=== PATIENT | female | born 1970 | race Caucasian/White ===

== ENCOUNTER 2018-04-19 19:07 | Emergency (ER) | payer MEDICARE, MEDICAID ==
--- NOTE | 2018-04-19 19:40 | ER Document Report ---
ED Allergic Reaction - General Mode of Arrival: Ambulatory Information source: Patient TRAVEL OUTSIDE OF THE [place] IN LAST 30 DAYS: No <ARIANE KIM - Last Filed: 04/19/18 22:37> <VADIM YUN - Last Filed: 04/20/18 03:28> - General Chief Complaint: Allergic Reaction Stated Complaint: POSSIBLE ALLERGIC REACTION Time Seen by Provider: 04/19/18 19:12 Notes: Patient is a 47-year-old female who presents to the emergency department today complaining of an allergic reaction. Patient reports initially feeling a burning and itching sensation in her hands which soon progressed to lip swelling , shortness of breath, and noticeable voice changes according to family at bedside. Patient states she did not come into contact with animals or any other substances that she has not encountered in the past so she cannot determine what caused the reaction. Patient states she has no known allergies except ketorolac. Patient is on immunosuppression therapy for RA patient was given 1 mg, 50 mg of Benadryl, 2.5 of albuterol, Solu-Medrol, and Pepcid prior to arrival by EMS. (ARIANE KIM) - Related Data Allergies/Adverse Reactions: ketorolac [From Toradol] Allergy (Verified 04/19/18 19:21) Past Medical History - General Information source: Patient - Social History Smoking Status: Former Smoker Frequency of alcohol use: None Drug Abuse: None Lives with: Family Family History: Reviewed & Not Pertinent Patient has suicidal ideation: No Patient has homicidal ideation: No - Past Medical History Cardiac Medical History: Reports: Hx Hypercholesterolemia, Hx Hypertension Neurological Medical History: Reports: Hx Cerebrovascular Accident Musculoskeletal Medical History: Reports Hx Arthritis - RA, Reports Hx Fibromyalgia Past Surgical History: Reports: Hx Orthopedic Surgery, Hx Tonsillectomy - Immunizations Hx Diphtheria, Pertussis, Tetanus Vaccination: Yes <ARIANE KIM - Last Filed: 04/19/18 22:37> Review of Systems - Review of Systems Constitutional: See HPI, Other - allergic reaction EENT: See HPI, Throat swelling Cardiovascular: No symptoms reported Respiratory: See HPI, Short of breath Gastrointestinal: No symptoms reported Genitourinary: No symptoms reported Female Genitourinary: No symptoms reported Musculoskeletal: No symptoms reported Skin: See HPI, Rash Hematologic/Lymphatic: No symptoms reported Neurological/Psychological: No symptoms reported -: Yes All other systems reviewed and negative <ARIANE KIM - Last Filed: 04/19/18 22:37> Physical Exam - Vital signs Interpretation: Normal, Tachycardic - General General appearance: Appears well, Alert - HEENT Head: Normocephalic, Atraumatic Eyes: Normal Pupils: PERRL - Respiratory Respiratory status: No respiratory distress Chest status: Nontender Breath sounds: Normal Chest palpation: Normal - Cardiovascular Rhythm: Regular Heart sounds: Normal auscultation Murmur: No - Abdominal Inspection: Normal Distension: No distension Bowel sounds: Normal Tenderness: Nontender Organomegaly: No organomegaly - Back Back: Normal, Nontender - Extremities General upper extremity: Normal inspection, Nontender, Normal color, Normal ROM , Normal temperature General lower extremity: Normal inspection, Nontender, Normal color, Normal ROM , Normal temperature, Normal weight bearing. No: Cleveland's sign - Neurological Neuro grossly intact: Yes Cognition: Normal Orientation: AAOx4 [place] Coma Scale Eye Opening: Spontaneous [place] Coma Scale Verbal: Oriented [place] Coma Scale Motor: Obeys Commands [place] Coma Scale Total: 15 Speech: Normal Motor strength normal: LUE, RUE, LLE, RLE Sensory: Normal - Psychological Associated symptoms: Normal affect, Normal mood - Skin Skin Temperature: Warm Skin Moisture: Dry Skin Color: Normal Character of irregularity: Urticarial - diffuse <VADIM YNU - Last Filed: 04/20/18 03:28> - Vital signs Vitals: Temp Pulse Resp BP Pulse Ox 98.2 F 105 H 14 131/98 H 98 04/19/18 19:08 04/19/18 19:08 04/19/18 19:08 04/19/18 19:08 04/19/18 19:08 Course - Laboratory Result Diagrams: 04/19/18 19:35 04/19/18 19:35 <ARIANE KIM - Last Filed: 04/19/18 22:37> - Laboratory Result Diagrams: 04/19/18 19:35 04/19/18 19:35 - Diagnostic Test Radiology reviewed: Reports reviewed <VADIM YUN - Last Filed: 04/20/18 03:28> - Re-evaluation Re-evalutation: 04/19/18 Patient is a 47-year-old female who presents with an acute anaphylactic reaction. Patient is not sure what started her itching but then had swelling of her mouth, tongue, and wheezing. She was given epinephrine, Benadryl, Solu- Medrol, duoneb, fluids prior to arrival. She still having itching here in the emergency department. Oropharynx is clear. Patient will be given more Benadryl and famotidine. She has been observed for almost 4 hours and has had no return of symptoms. Headache has been treated with Reglan. Patient will be discharged home with a prescription for prednisone and an EpiPen. She is to continue to take Claritin, Benadryl, and famotidine [id number]. Understands agrees with plan. Of note, the patient takes Biologics for rheumatoid arthritis. She is to call the person who prescribes these and discuss her recent anaphylactic reaction. Stable for discharge. (VADIM YUN) - Vital Signs Vital signs: Temp Pulse Resp BP Pulse Ox 98.2 F 105 H 21 H 133/90 H 99 04/19/18 19:08 04/19/18 19:08 04/19/18 22:30 04/19/18 22:30 04/19/18 22:30 - Laboratory Laboratory results interpreted by me: 04/19/18 19:35 Est GFR (Non-Af Amer) 57 L Glucose 132 H Critical Care Note - Critical Care Note Total time excluding time spent on procedures (mins): 15 - Evaluation and management of anaphylactic reaction with multiple re-evaluations, counseling of patient <VADIM YUN - Last Filed: 04/20/18 03:28> Discharge <ARIANE KIM - Last Filed: 04/19/18 22:37> <VADIM YUN - Last Filed: 04/20/18 03:28> - Discharge Clinical Impression: Anaphylactic reaction Qualifiers: Encounter type: initial encounter Qualified Code(s): T78.2XXA - Anaphylactic shock, unspecified, initial encounter Condition: Stable Disposition: HOME, SELF-CARE Instructions: Acute Allergic Reaction ([facility]) Additional Instructions: Please follow-up with your doctor this week. Please take Claritin and Benadryl [id number] as needed for itching. Prescriptions: Epinephrine [Epipen 2-Gabriel] 0.3 mg IM ONCE #1 ml Famotidine 20 mg PO BID #30 tablet Prednisone 40 mg PO DAILY #6 tablet Referrals: LADAN ALMANZAR MD [Primary Care Provider] - Follow up as needed Scribe Attestation: 04/19/18 22:34 I personally performed the services described in the documentation, reviewed and edited the documentation which was dictated to the scribe in my presence, and it accurately records my words and actions. (VADIM YUN) Scribe Documentation - Scribe Written by Cindy:: Cindy Conner, 04/19/2018 [id number] acting as scribe for :: Shelbi <ARIANE KIM - Last Filed: 04/19/18 22:37>
--- NOTE | 2018-04-19 19:46 | RADIOLOGY REPORT (SQ) ---
EXAM DESCRIPTION: CHEST SINGLE VIEW COMPLETED DATE/TIME: 04/19/2018 7:38 pm REASON FOR STUDY: SOB COMPARISON: 07/21/2014 EXAM PARAMETERS: NUMBER OF VIEWS: One view. TECHNIQUE: Single frontal radiographic view of the chest acquired. RADIATION DOSE: NA LIMITATIONS: None. FINDINGS: LUNGS AND PLEURA: No opacities, masses or pneumothorax. No pleural effusion. MEDIASTINUM AND HILAR STRUCTURES: No masses. Contour normal. HEART AND VASCULAR STRUCTURES: Heart normal in size. Normal vasculature. BONES: No acute findings. HARDWARE: None in the chest. OTHER: No other significant finding. IMPRESSION: NO ACUTE RADIOGRAPHIC FINDING IN THE CHEST. TECHNICAL DOCUMENTATION: JOB ID: [id number] [place]-72 2010 [employer]- All Rights Reserved Reading location - IP/workstation name: [employer]
[2018-04-19 19:54] LABS: ABSOLUTE LYMPHOCYTES (AUTO) 1.5 10^3/uL (0.5-4.7); ABSOLUTE MONOCYTES (AUTO) 0.2 10^3/uL (0.1-1.4); ABSOLUTE NEUT (AUTO) 3.8 10^3/uL (1.7-8.2); BASOPHILS % (AUTO) 0.1 % (0-2); EOSINOPHILS % (AUTO) 0.1 % (0-6); HEMATOCRIT 40.7 % (36.0-47.0); HEMOGLOBIN 14.2 g/dL (12.0-15.5); LYMPHOCYTES % (AUTO) 27.8 % (13-45); MEAN CORPUSCULAR HEMOGLOBIN 32.2 pg (27.0-33.4); MEAN CORPUSCULAR HGB CONC 34.9 g/dL (32.0-36.0); MEAN CORPUSCULAR VOLUME 92 fl (80-97); PLATELET COUNT 257 10^3/uL (150-450); RED BLOOD COUNT 4.41 10^6/uL (3.72-5.28); RED CELL DISTRIBUTION WIDTH 13.5 % (11.5-14.0); TOTAL CELLS COUNTED % (AUTO) 100 %; WHITE BLOOD COUNT 5.6 10^3/uL (4.0-10.5)
[2018-04-19 20:06] LABS: BLOOD UREA NITROGEN 14 mg/dL (7-20); CALCIUM 9.2 mg/dL (8.4-10.2); CHLORIDE 107 mmol/L (98-107); GLUCOSE 132 mg/dL (75-110); POTASSIUM 3.7 mmol/L (3.6-5.0)
[2018-04-19 20:07] LABS: ANION GAP 14 (5-19); CARBON DIOXIDE 23 mmol/L (22-30); SODIUM 143.6 mmol/L (137-145)
[2018-04-19] MEDS ORDERED: DIPHENHYDRAMINE HCL 50 MG/ML VIAL IV ONE (20:26)
[2018-04-19] MEDS ORDERED: FAMOTIDINE INJ/PF 20 MG/2 ML SDV IV ONE (20:26)
[2018-04-19 22:37] VITALS: BP 133/90
[2018-04-19] MEDS ORDERED: METOCLOPRAMIDE HCL INJ/PF 10 MG/2 ML SDV IV ONE (22:37)
== END 2018-04-19 22:49 | disposition home or self-care (01) ==
LOC: ER 19:07
DX: T78.2XXA Anaphylactic shock, unspecified, initial encounter (principal); L50.9 Urticaria, unspecified; R22.0 Localized swelling, mass and lump, head; R06.02 Shortness of breath; R09.89 Other specified symptoms and signs involving the circulatory and respiratory systems; M06.9 Rheumatoid arthritis, unspecified; Z79.899 Other long term (current) drug therapy; I10 Essential (primary) hypertension; R06.2 Wheezing; Z88.8 Allergy status to other drugs, medicaments and biological substances
CPT/HCPCS: 99283; 96374; 96375; 36415; 85025; 80048; 71045; J1200; J2765; S0028

== ENCOUNTER 2018-06-29 00:46 | Emergency (ER) | payer MEDICARE, MEDICAID ==
[2018-06-29] MEDS ORDERED: FAMOTIDINE INJ/PF 20 MG/2 ML SDV IV ONE (01:19)
[2018-06-29] MEDS ORDERED: DIPHENHYDRAMINE HCL 50 MG/ML VIAL IV ONE (01:19)
[2018-06-29] MEDS ORDERED: METHYLPREDNISOLONE INJ 125 MG/2 ML SDV IV ONE (01:20)
--- NOTE | 2018-06-29 01:26 | ER Document Report ---
ED Allergic Reaction - General Chief Complaint: Allergic Reaction Stated Complaint: POSSIBLE ALLERGIC REACTION Time Seen by Provider: 06/29/18 01:09 Information source: Patient Notes: Pt is a 47 y/o female presenting to the ED c/o an allergic reaction. Stated that around midnight she noted that she had "bite almonte" to her right upper thigh. Stated that she noted itching, redness, and heat from these lesions and then felt tightness in her throat. Stated that she gave herself her Epi pen in her left thigh. Stated that she has an epi pen from another anaphylactic reaction. Patient states she is unsure what she is allergic to. States after last reaction she followed up with primary care. Patient states when she had her last anaphylactic reaction she felt the same with tightness in her throat. Stated she was outside waiting in thigh deep pond water today but is unsure of contact with brush or insects. Patient denies any new exposure to soaps, perfumes, detergent, cats, dogs. Denies any new medications. Patient is currently only complaining of warmth and itching to right upper thigh. Patient denies shortness of breath, chest tightness, throat tightness after giving herself her EpiPen. Patient states she just feels "shaky". Past medical history: Anxiety, RA, ADHD, lupus, sogerns, hypertension, hyperlipidemia Medications: Simvastatin, metoprolol, Adderall, Xanax, Acthar HD Allergies: Toradol Patient denies EtOH use, denies cigarette use, denies illicit drug use. TRAVEL OUTSIDE OF THE [place] IN LAST 30 DAYS: No - Related Data Allergies/Adverse Reactions: ketorolac [From Toradol] Allergy (Verified 04/19/18 19:21) Past Medical History - General Information source: Patient - Social History Smoking Status: Unknown if Ever Smoked Lives with: Family Family History: Reviewed & Not Pertinent - Past Medical History Cardiac Medical History: Reports: Hx Hypercholesterolemia, Hx Hypertension Neurological Medical History: Reports: Hx Cerebrovascular Accident Renal/ Medical History: Denies: Hx Peritoneal Dialysis Musculoskeletal Medical History: Reports Hx Arthritis - RA, Reports Hx Fibromyalgia Past Surgical History: Reports: Hx Orthopedic Surgery, Hx Tonsillectomy - Immunizations Hx Diphtheria, Pertussis, Tetanus Vaccination: Yes Review of Systems - Review of Systems Constitutional: See HPI EENT: See HPI Cardiovascular: See HPI Respiratory: See HPI Gastrointestinal: See HPI Genitourinary: No symptoms reported Female Genitourinary: No symptoms reported Musculoskeletal: No symptoms reported Skin: See HPI Hematologic/Lymphatic: No symptoms reported Neurological/Psychological: No symptoms reported Physical Exam - Vital signs Vitals: Temp Pulse Resp BP Pulse Ox 97.9 F 96 18 121/83 96 06/29/18 00:58 06/29/18 00:58 06/29/18 00:58 06/29/18 00:58 06/29/18 00:58 - Notes Notes: GENERAL: Alert, interacts well. No acute distress. HEAD: Normocephalic, atraumatic. EYES: Pupils equal, round, and reactive to light. Extraocular movements intact. ENT: Oral mucosa moist, tongue midline. Pharynx within normal limits no erythema. NECK: Full range of motion. Supple. Trachea midline. LUNGS: Clear to auscultation bilaterally, no wheezes, rales, or rhonchi. No respiratory distress. HEART: Regular rate and rhythm. No murmur ABDOMEN: Soft, non-tender. Non-distended. Bowel sounds present in all 4 quadrants. EXTREMITIES: Moves all 4 extremities spontaneously. No edema, normal radial and dorsalis pedis pulses bilaterally. No cyanosis. BACK: no cervical, thoracic, lumbar midline tenderness. No saddle anesthesia, normal distal neurovascular exam. NEUROLOGICAL: Alert and oriented x3. Normal speech. cranial nerves II through XII grossly intact PSYCH: Normal affect, normal mood. SKIN: Warm, dry, normal turgor. 5cm X 6cm raised erythematous area anterior right thigh. 2cm x 2cm raised erythematous area medial distal right thigh, below that another 2 cm x 2 cm erythematous raised lesion. 8cm x 8 cm raised erythematous lesion middle of posterior thigh right. Course - Re-evaluation Re-evalutation: 06/29/18 02:45 Pt. now c/o new onset cough and "tightness in my throat." Epi IM will be given. After IM Epi given, Pt. no longer with cough or tightness in throat. Stated that she feels very anxious. Stated that she usually takes Xanax 1mg TID and has not taken her dose tonight. Stated she wishes for only half her normal dose at this time. 06/29/18 05:24 patient currently 2-1/2 hours post last epinephrine administration. Patient has no cough, states no tightness in her throat. Patient states she is wishing for discharge. Vital signs stable at this point. Will refill epipen prescription close return precautions given - Vital Signs Vital signs: Temp Pulse Resp BP Pulse Ox 98.7 F 96 19 120/98 H 97 06/29/18 05:55 06/29/18 00:58 06/29/18 05:55 06/29/18 05:55 06/29/18 05:55 Discharge - Discharge Clinical Impression: Anaphylactic reaction Qualifiers: Encounter type: initial encounter Qualified Code(s): T78.2XXA - Anaphylactic shock, unspecified, initial encounter Condition: Stable Disposition: HOME, SELF-CARE Additional Instructions: You have been seen and treated in the emergency room for another. Please return to the emergency room should you have any shortness of breath, chest pain , redness or swelling of your right leg increases, any other worsening symptoms. Take Benadryl every 6 hours as needed for itching and rash of right leg. Anaphylaxis Kit Use your anaphylaxis kit for life-threatening allergic reactions. It can be carried with you. After using the kit, you should get immediate medical attention. The kit contains a syringe with adrenaline for injection, and an antihistamine pill. Expected side effects of adrenaline are rapid heartbeat, shakiness, weakness, and occasionally headache or nausea. These symptoms develop within minutes of the injection, and usually wear off within 30 minutes. The antihistamine causes drowsiness. Review the instructions in the kit carefully. Be sure you know how to use it properly. Check the expiration date, and replace an unused kit before it expires. If you haven't used an anaphylaxis kit before, please return here when you' ve filled the prescription. We'll show you how to use it. Prescriptions: Epinephrine 0.3 mg IJ PRN PRN #2 auto.injct PRN Reason: Itching Prednisone [Deltasone 20 mg Tablet] 3 tab PO DAILY 5 Days tablet Referrals: LADAN ALMANZAR MD [Primary Care Provider] - Follow up as needed
[2018-06-29] MEDS ORDERED: DIPHENHYDRAMINE HCL 50 MG/ML VIAL ONE (01:37)
[2018-06-29] MEDS ORDERED: EPINEPHRINE INJ/PF 1 MG/1 ML AMPULE IM ONE (02:53)
[2018-06-29] MEDS ORDERED: ALPRAZOLAM 0.5 MG TABLET PO ONE (03:47)
[2018-06-29 06:22] VITALS: BP 120/98
== END 2018-06-29 06:22 | disposition home or self-care (01) ==
LOC: ER 00:46
DX: T78.2XXA Anaphylactic shock, unspecified, initial encounter (principal); R05 Cough; R09.89 Other specified symptoms and signs involving the circulatory and respiratory systems; X58.XXXA Exposure to other specified factors, initial encounter; E78.00 Pure hypercholesterolemia, unspecified; I10 Essential (primary) hypertension
CPT/HCPCS: 99283; 96372; 96374; 96375; A9270; J1200; J0171; J2930; S0028